=== PATIENT | female | born 1965 | race African-American/Black ===

== ENCOUNTER 2018-10-22 06:19 | Day surgery (SDC) | payer OTHER ==
[2018-10-22] MEDS ORDERED: CEFAZOLIN 1 GM INJ (08:19)
[2018-10-22] MEDS ORDERED: ROCURONIUM 50 MG INJ (08:19)
[2018-10-22] MEDS ORDERED: NEOSTIGMINE 3 MG/3 ML SYRINGE (08:19)
[2018-10-22] MEDS ORDERED: PROPOFOL 20 ML (08:19)
[2018-10-22] MEDS ORDERED: GLYCOPYRROLATE 0.4 MG INJ (08:19)
[2018-10-22] MEDS ORDERED: ONDANSETRON 4 MG INJ (08:22)
[2018-10-22] MEDS ORDERED: MIDAZOLAM 1 MG/ML 2 ML INJ (08:22)
[2018-10-22] MEDS ORDERED: FENTAnyl 50 MCG/ML VIAL (08:22)
[2018-10-22] MEDS ORDERED: DEXAMETHASONE 4 MG/ML 5 ML INJ (08:22)
[2018-10-22] MEDS ORDERED: LACTATED RINGER'S 1,000 ML IV (08:30)
[2018-10-22] MEDS ORDERED: TRIMETHOBENZAMIDE 100 MG/ML VIAL IM (09:00)
[2018-10-22] MEDS ORDERED: FENTAnyl 50 MCG/ML VIAL IV ×2 (09:00)
[2018-10-22] MEDS ORDERED: LABETALOL HCL 20MG INJ IV (09:00)
[2018-10-22] MEDS ORDERED: MEPERIDINE 25 MG INJ IV (09:00)
[2018-10-22] MEDS ORDERED: IPRATROPIUM (NEB) 0.5 MG/2.5 ML AMP HHN (09:00)
[2018-10-22] MEDS ORDERED: MIDAZOLAM 1 MG/ML 2 ML INJ IV (09:00)
[2018-10-22] MEDS ORDERED: EPHEDrine 25 MG/5 ML SYG IV (09:00)
[2018-10-22] MEDS ORDERED: ALBUTEROL 0.083% (NEB) 2.5 MG/3 ML AMP HHN (09:00)
[2018-10-22] MEDS ORDERED: DIPHENHYDRAMINE 50 MG INJ IV (09:00)
[2018-10-22] MEDS ORDERED: hydrALAzine 20 MG INJ IV (09:00)
[2018-10-22] MEDS: LIDOCAINE 2% (MDV) 20 ML INJ (09:03)
[2018-10-22] MEDS: BUPIVACAINE 0.5% (SDV) 30 ML INJ (09:03)
[2018-10-22] MEDS: DEXAMETHASONE 4 MG/ML 1 ML INJ (09:04)
[2018-10-22] MEDS: TRIAMCINOLONE ACET 40 MG/ML INJ (09:04)
[2018-10-22] MEDS: ONDANSETRON 4 MG INJ IV (10:56)
[2018-10-22] MEDS: FENTAnyl 50 MCG/ML VIAL IV (10:56)
== END 2018-10-22 12:20 | disposition home or self-care (01) ==
LOC: SDS 06:19
DX: M20.42 Other hammer toe(s) (acquired), left foot (principal); M20.5X2 Other deformities of toe(s) (acquired), left foot; Z86.73 Personal history of transient ischemic attack (TIA), and cerebral infarction without residual deficits
CPT/HCPCS: 28285; 71045; 73630-LT; 88304; 88311